=== PATIENT | male | born 1980 | race Caucasian/White ===

== ENCOUNTER 2019-11-03 02:25 | Emergency (ER) | payer SELFPAY ==
--- NOTE | 2019-11-03 03:15 | CR ---
Indication: Shortness of breath Technique: Chest 2 views Comparison: None Findings: Cardiovascular and mediastinum: Heart size and vasculature are normal in caliber and appearance. Lungs and pleural spaces: No pleural effusion or pneumothorax. Minimal patchy and linear opacities left lower lobe. Bones and soft tissues: No significant findings. Impression: Minimal patchy and linear opacities left lower lobe consistent with atelectasis or pneumonia. Dictated by Demario Sandoval MD @ Nov 03 2019 3:13AM Signed by Dr. Demario Sandoval @ Nov 03 2019 3:14AM
[2019-11-03 03:30] LABS: BLOOD UREA NITROGEN,BUN 11 mg/dL (7.0-18.0); CARBON DIOXIDE,CO2 28.3 mmol/L (21.0-32.0); CHLORIDE,CL 105 mmol/L (98-107); GLUCOSE RANDOM 97 mg/dL (74-106); LIPASE 139 U/L (73-393); POTASSIUM,K 4.2 mmol/L (3.5-5.1); SODIUM,NA 142 mmol/L (136-148)
[2019-11-03] MEDS ORDERED: Iopamidol 755 Mg/ML 100 ML Bottle IVPUSH ONE (04:06)
--- NOTE | 2019-11-03 04:35 | CT ---
INDICATION: Shortness of breath TECHNIQUE: CT chest PE was acquired with 90 cc Isovue 370 intravenous contrast. COMPARISON: None. FINDINGS: Heart and vasculature: Contrast opacification of the pulmonary arterial tree is adequate. No sign of pulmonary embolism. Heart size is normal. Thoracic aorta and pulmonary artery are normal in caliber. Lungs and pleural: Trace left pleural effusion. Mild ground-glass opacities within the lingula and left lower lobe. Noncalcified lingular pulmonary nodule measuring 3 millimeters (402, 37). Lymph nodes/mediastinum: No enlarged mediastinal lymph nodes. Thyroid gland is normal. Chest wall: No masses. Upper abdomen: Normal. Bones: Unremarkable for age. IMPRESSION: 1. No evidence of pulmonary embolus. 2. Trace left pleural effusion with mild ground-glass opacities in the lingula and left lower lobe suspicious for an interstitial pneumonia. Please note that all CT scans at this facility use dose modulation, iterative reconstruction, and/or weight-based dosing when appropriate to reduce radiation dose to as low as reasonably achievable. Dictated by Demario Sandoval MD @ Nov 03 2019 4:27AM Signed by Dr. Demario Sandoval @ Nov 03 2019 4:33AM
[2019-11-03] MEDS ORDERED: Doxycycline 100 MG Cap PO ONE (04:38)
--- NOTE | 2019-11-03 04:46 | EDM.PDOC ---
ED [facility] GENERAL MEDICAL PROBLEM - General Chief Complaint: Chest Pain Stated Complaint: CHEST PAIN Time Seen by Provider: 11/03/19 02:42 - History of Present Illness INITIAL COMMENTS - FREE TEXT/NARRATIVE: HPI 39-year-old obese male smoker presents for evaluation of ~3 days of poorly characterized left substernal chest pain that is worsened by taking a deep breath. Patient denies cough, fevers, chills, or exacerbation with exercise. Patient denies recent immobilization, leg trauma, estrogen use, surgery in the last four weeks, hemoptysis, or malignancy in the last 6 months. M/S/F/SocHx notable for: please see HPI; remainder reviewed with patient and in chart. ROS: Negative constitutional, eye, cardiovascular, pulmonary, GI, , MSK, skin , neurologic, psychiatric, endocrine unless noted in the HPI. Exam HR 84, RR 18, BP 131/86, T 36.8C, SaO2 98% on room air. Gen: Pleasant, non-toxic appearing, resting comfortably. HEENT: NC, AT, PEERL, EOMI. Resp: Clear to auscultation bilaterally, normal work of breathing. Card: RRR with no M/R/G, no crackles in lung bases, no pedal edema, no JVD appreciated. GI: NT/ND Vascular: Both ankles, calves, and thighs of equal size, no calf tenderness to palpation bilaterally. MSK: left inferior lateral chest wall TTP. No visible deformities, strength and tone WNL. Skin: Normal color with no visible lesions. Neuro: alert and oriented 3, no facial asymmetry, vision and hearing WNL. Psych: Mood and affect appropriate. Labs / Imaging (pertinent): EKG: SR 85 bpm, no [place] segment depressions, QRS 103 ms, no ST segment elevations or depressions no hyperacute T waves or discordant T wave inversions, QTc 399 ms. WBC 11.14, HB 16.9, d-dimer 0.49, sodium 142, potassium 4.2, AST 17, ALT 37, total bilirubin 0.5, alkaline phosphatase 102, troponin <0.050. CXR: minimal patchy and linear opacities left lower lobe consistent with atelectasis or pneumonia. CTA chest: no evidence of pulmonary embolus. Trace left pleural effusion with mild groundglass opacities in the lingula and left lower lobe suspicious for interstitial pneumonia. MDM Previous chart, nursing note, and vitals reviewed. A: 39-year-old obese male smoker presents for evaluation of ~3 days of poorly characterized left substernal chest pain that is worsened by taking a deep breath. DDx: ACS, unstable angina, pericarditis, myocarditis, dissection, PE, mediastinal air, pneumothorax, MSK, endocarditis, GI (GERD, gastritis, esophageal rupture, esophageal spasm). Evaluation: suspect patient symptoms are secondary to pneumonia/pneumonitis. Chest x-ray with patchy and linear opacities in left lower lobe, however the patient is without a cough, fever, or further corroborating symptoms, as such a CT was obtained. This is without evidence of PE but notable for trace effusion and findings consistent with interstitial pneumonia. Patient was given 100 mg doxycycline the ED and discharged with prescription for the same. With respect to a cardiac etiology the ECG is nonischemic and the troponin is negative, as these were obtained greater than 6 hours from maximal symptom onset , ACS is felt to be effectively excluded. No features strongly suggestive of unstable angina, given alternate diagnosis this is also considered to be effectively excluded. Evaluation is also without evidence pericarditis, myocarditis, dissection, pneumothorax, mediastinal air, and there are no identifiable risk features suggestive of endocarditis. No features suggestive of a G.I. etiology. Disposition: Discharge with PCP follow up. Return to care precautions given verbally and in writing. Impression: pneumonia. chest pain Pain Score (Numeric/FACES): 6 - Related Data Allergies Allergy/AdvReac Type Severity Reaction Status Date / Time No Known Allergies Allergy Verified 11/03/19 02:31 Home Meds: Home Meds Doxycycline [Vibramycin] 100 mg PO BID #19 cap 11/03/19 [Rx] Past Medical History HEENT History: Reports: None Cardiovascular History: Reports: None Respiratory History: Reports: None Gastrointestinal History: Reports: None Genitourinary History: Reports: None Musculoskeletal History: Reports: None Neurological History: Reports: None Psychiatric History: Reports: None Endocrine/Metabolic History: Reports: None Insulin Pump Model and Junior Analyst: None Hematologic History: Reports: None Immunologic History: Reports: None Oncologic (Cancer) History: Reports: None Dermatologic History: Reports: None - Infectious Disease History Infectious Disease History: Reports: None - Past Surgical History Head Surgeries/Procedures: Reports: None Social & Family History - Family History Family Medical History: Noncontributory - Tobacco Use Smoking Status *Q: Current Every Day Smoker Years of Tobacco use: 10 Packs/Tins Daily: 0.5 - Caffeine Use Caffeine Use: Reports: None - Recreational Drug Use Recreational Drug Use: No ED ROS GENERAL - Review of Systems Review Of Systems: See Below ED EXAM, GENERAL - Physical Exam Exam: See Below Course - Vital Signs Last Recorded V/S: Last Vital Signs Temp 36.8 C 11/03/19 02:31 Pulse 84 11/03/19 02:31 Resp 18 11/03/19 02:31 BP 131/86 11/03/19 02:31 Pulse Ox 98 11/03/19 02:31 - Orders/Labs/Meds Orders: Active Orders 24 hr Category Date Time Status EKG 12 Lead [EKG Documentation Completion] [RC] STAT Care 11/03/19 02:37 Active Labs: Laboratory Tests 11/03/19 11/03/19 11/03/19 Range/Units 02:41 02:41 02:41 WBC 11.14 H (4.0-11.0) K/uL RBC 5.15 (4.50-5.90) M/uL Hgb 16.9 (13.0-17.0) g/dL Hct 48.2 (38.0-50.0) % MCV 93.6 (80.0-98.0) fL MCH 32.8 H (27.0-32.0) pg MCHC 35.1 (31.0-37.0) g/dL RDW Std Deviation 45.3 (28.0-62.0) fl RDW Coeff of Wolfgang 13 (11.0-15.0) % Plt Count 181 (150-400) K/uL MPV 10.00 (7.40-12.00) fL Neut % (Auto) 56.3 (48.0-80.0) % Lymph % (Auto) 29.9 (16.0-40.0) % Mccreary % (Auto) 12.4 (0.0-15.0) % Eos % (Auto) 1.1 (0.0-7.0) % Baso % (Auto) 0.3 (0.0-1.5) % Neut # (Auto) 6.3 H (1.4-5.7) K/uL Lymph # (Auto) 3.3 H (0.6-2.4) K/uL Mccreary # (Auto) 1.4 H (0.0-0.8) K/uL Eos # (Auto) 0.1 (0.0-0.7) K/uL Baso # (Auto) 0.0 (0.0-0.1) K/uL Nucleated RBC % 0.0 /100WBC Nucleated RBCs # 0 K/uL D-Dimer, Quantitative 0.49 (0.0-0.50) mg/L FEU Sodium 142 (136-148) mmol/L Potassium 4.2 (3.5-5.1) mmol/L Chloride 105 (98-107) mmol/L Carbon Dioxide 28.3 (21.0-32.0) mmol/L BUN 11 (7.0-18.0) mg/dL Creatinine 1.2 (0.8-1.3) mg/dL Est Cr Clr Drug Dosing 81.83 mL/min Estimated GFR (MDRD) > 60.0 ml/min Glucose 97 (74-106) mg/dL Calcium 8.9 (8.5-10.1) mg/dL Total Bilirubin 0.5 (0.2-1.0) mg/dL AST 17 (15-37) IU/L ALT 37 (14-63) IU/L Alkaline Phosphatase 102 (46-116) U/L Troponin I < 0.050 (0.000-0.056) ng/mL Total Protein 7.6 (6.4-8.2) g/dL Albumin 3.7 (3.4-5.0) g/dL Globulin 3.9 (2.6-4.0) g/dL Albumin/Globulin Ratio 0.9 (0.9-1.6) Lipase 139 (73-393) U/L Meds: Medications Discontinued Medications Generic Name Dose Route Start Last Admin Trade Name Freq PRN Reason Stop Dose Admin Doxycycline Hyclate 100 mg 11/03/19 04:38 Vibramycin PO 11/03/19 04:39 ONETIME ONE Iopamidol 100 ml 11/03/19 04:06 11/03/19 04:07 Isovue-370 (76%) IVPUSH 11/03/19 04:07 100 ml ONETIME ONE Administration Departure - Departure Time of Disposition: 04:45 Disposition: Home, Self-Care 01 Clinical Impression: Pneumonia - Discharge Information Prescriptions: Doxycycline [Vibramycin] 100 mg PO BID #19 cap Referrals: PCP,None [Primary Care Provider] - Additional Instructions: You were in seen in the [facility] Emergency Department for evaluation of chest pain, you were found to have pneumonia, this may be due to either a virus or bacteria. You have been prescribed doxycycline to treat a possible bacterial pneumonia. Your CT demonstrates a small amount of fluid around your lung, you should follow up with a primary care physician for repeat evaluation in 4-5 days. A summary of your CT report is enclosed below. Please read and follow all of the instructions below. CTA chest: no evidence of pulmonary embolus. Trace left pleural effusion with mild groundglass opacities in the lingula and left lower lobe suspicious for interstitial pneumonia. When calling for follow-up care, please make the office aware that this follow- up is from your recent emergency room visit. If for any reason you are refused follow-up, please contact the [facility] Emergency Department at and asked to speak to the emergency department charge nurse. Your care today was limited to identifying and treating emergent medical problems only. Many people have subtle differences in their test results that require follow up with their outpatient physician(s) to correctly determine if this represents a normal variation or concerning abnormality with respect to your specific health. The care given to you today was limited to identifying and treating emergent medical problems - you need to request a copy of all of your medical records from today's visit and follow up with your outpatient physician(s) to review both today's visit and your overall health. If you have any new symptoms or if you are at all concerned about your health please return immediately to the emergency department. Prescriptions: If you are uninsured or have financial difficulties with filling your prescription(s), you may consider using a free pharmacy discount service such as [employer] ([employer]) or [employer] ([employer]). These services allow you to search for a medication on your phone (or computer) and obtain a coupon that usually has a significant discount from the list [place] at a pharmacy. Your physician as well as [facility] does not have a financial relationship with either of these services. You may also wish to speak with your physician to determine if lower cost prescriptions are possible. Obtaining primary care: 1. [facility] provides pediatrics (children), family medicine (children, adults, and some obstetrical care), and internal medicine (adults). Further specialty care is also available. Same day appointments are available. They may be contacted at [phone] and are open Thursday through Thursday 8 AM to [address] [facility] are located at [facility], [address] [place], [place] [address]. 2. [facility] offers family medicine, internal medicine, women health, and further specialty care. [facility] may be contacted at [phone]. [facility] is located at [address] [address]. 3. If you have health insurance, please also contact your insurer for a list of accepting providers under your policy, you may contact these providers for further health care. Occupational health: Work related injuries may consider following up with [facility], . Occupational health services are located at [address] [place] [address] and are open Thursday through Thursday from 7: 30 am to 5:00 pm. Obstetrical and Gynecological Care: [facility], , Thursday through Thursday 8 AM to [address] [place] [address]. Eyecare: If you have an eye injury you should follow up with your drum printer or with [facility], at [phone] or [phone] , they are located at [address] [place] [address]. Dental Care * Graham Begum DDS. [address] [place], [place]. Ph. [phone] * Sean Begum DDS MS. [address] Ph[address] [phone] * Santos Hong DDS. [address] 09/[address] [place] [address]. Ph. [phone] * Emir Olivera DDS. [address] [facility] [address] [place], [place]. Ph. [phone] * Ghassan Felix DDS PC. [address] [facility] [address] [place], [place]. Ph. [phone] * Pal Hebert DDS. [address] [facility]. Ph. [phone] * [facility]. [address] [place], [place]. Ph. [phone] * [facility]. [address] [place] [address], [place], [place]. Ph. [phone] * [facility] [address] [place] [address]. Ph. * [facility]. [address] [place] [address] [address] [place], [place]. Ph. [phone] * [facility]. [address] [place], [place]. Ph. [phone] Pneumonia * Pneumonia is an infection of the lungs that causes coughing, fever, and trouble breathing. It is a serious illness, especially in young children, people older than 65, and people with other health problems. Pneumonia is usually caused by bacteria but can also be caused by viruses or other germs. You have been prescribed an antibiotic and possibly a steroid (prednisone). * Take the antibiotic for the entire prescription. * Return if you have difficulty breathing, chest pain, shaking chills, lighheadedness, shortness of breath, a temperature greater than 102F, lightheaded, or are otherwise concerned about your health. * You may take Ibuprofen (Motrin) and Acetaminophen (Tylenol) as directed on the bottle for relief of pain. * Stay well hydrated and get plenty of rest. * Please see you primary care physician if you do not start to feel better in 3- 5 days. * You should also receive a yearly influenza vaccine and a pneumococcal pneumonia vaccine every 5 years Doxycycline (Brand Name: Vibramycin) * Please take this medication as prescribed. * Please take the medication for the full duration of the precription. * If you feel you are experiencing a side effect, please call your physician or the emergency department. * This medication may rarely cause mild to severe rashes that hurt with exposure to sunlight. Please stop this medication and contact your doctor if you have a rash. WARNING/CAUTION: Even though it may be rare, some people may have very bad and sometimes deadly side effects when taking a drug. Tell your doctor or get medical help right away if you have any of the following signs or symptoms that may be related to a very bad side effect: * Signs of an allergic reaction, like rash; hives; itching; red, swollen, blistered, or peeling skin with or without fever; wheezing; tightness in the chest or throat; trouble breathing or talking; unusual hoarseness; or swelling of the mouth, face, lips, tongue, or throat. * Signs of liver problems like dark urine, feeling tired, not hungry, upset stomach or stomach pain, light-colored stools, throwing up, or yellow skin or eyes. * Chest pain. * Not able to pass urine or change in how much urine is passed. * Fever or chills. * Sore throat. * Throat irritation. * Trouble swallowing. * Any bruising or bleeding that is not normal. * Joint pain. * Feeling very tired or weak. * Vaginal itching or discharge. * It is common to have diarrhea when taking this drug. Rarely, a very bad form of diarrhea called Clostridium difficile (C diff)-associated diarrhea (CDAD) may occur. Sometimes, this has led to a deadly bowel problem (colitis). CDAD may happen while you are taking this drug or within a few months after you stop taking it. Call your doctor right away if you have stomach pain or cramps, very loose or watery stools, or bloody stools. Do not try to treat loose stools without first checking with your doctor. * Raised pressure in the brain has happened with this drug. Most of the time, this will go back to normal after this drug is stopped. Sometimes, loss of eyesight may happen and may not go away even after this drug is stopped. Call your doctor right away if you have a headache or eyesight problems like blurred eyesight, seeing double, or loss of eyesight. * A very bad skin reaction (Marshall-Reza syndrome/toxic epidermal necrolysis ) may happen. It can cause very bad health problems that may not go away, and sometimes . Get medical help right away if you have signs like red, swollen , blistered, or peeling skin (with or without fever); red or irritated eyes; or sores in your mouth, throat, nose, or eyes. * What are some other side effects of this drug? * All drugs may cause side effects. However, many people have no side effects or only have minor side effects. Call your doctor or get medical help if any of these side effects or any other side effects bother you or do not go away: * Not hungry. * Upset stomach or throwing up. * Loose stools (diarrhea). * These are not all of the side effects that may occur. If you have questions about side effects, call your doctor. Call your doctor for medical advice about side effects. What do I need to tell my doctor BEFORE I take this drug? * If you have an allergy to doxycycline or any other part of this drug. * If you are allergic to any drugs like this one, any other drugs, foods, or other substances. Tell your doctor about the allergy and what signs you had, like rash; hives; itching; shortness of breath; wheezing; cough; swelling of face, lips, tongue, or throat; or any other signs. * If you are taking any of these drugs: Acitretin, isotretinoin, or a penicillin. * This is not a list of all drugs or health problems that interact with this drug. * Tell your doctor and pharmacist about all of your drugs (prescription or OTC, natural products, vitamins) and health problems. You must check to make sure that it is safe for you to take this drug with all of your drugs and health problems. Do not start, stop, or change the dose of any drug without checking with your doctor. What are some things I need to know or do while I take this drug? * You may get sunburned more easily. Avoid sun, sunlamps, and tanning beds. Use sunscreen and wear clothing and eyewear that protects you from the sun. * control pills and other hormone-based control may not work as well to prevent . Use some other kind of control also like a condom when taking this drug. * This drug may cause a change in tooth color to [id number] in children younger than 8 years old. If this change of tooth color happens, it will not go away. Talk with the doctor. * Do not give to a child younger than 8 years old unless other drugs cannot be used or have not worked. Talk with the doctor. * This drug may cause harm to the unborn baby if you take it while you are . * Tell your doctor if you are or plan on getting . You will need to talk about the benefits and risks of using this drug while you are . * Tell your doctor if you are breast-feeding. You will need to talk about any risks to your baby. Sepsis Event Note - Evaluation Sepsis Screening Result: No Definite Risk - Focused Exam Vital Signs: Vital Signs Temp Pulse Resp BP Pulse Ox 11/03/19 02:31 36.8 C 84 18 131/86 98 Date Exam was Performed: 11/03/19 Time Exam was Performed: 04:44 - My Orders Last 24 Hours: My Active Orders 11/03/19 02:37 EKG 12 Lead [EKG Documentation Completion] [RC] STAT - Assessment/Plan Last 24 Hours: My Active Orders 11/03/19 02:37 EKG 12 Lead [EKG Documentation Completion] [RC] STAT
== END 2019-11-03 05:00 | disposition home or self-care (01) ==
LOC: MW.ED 02:25
DX: J18.9 Pneumonia, unspecified organism (principal); F17.210 Nicotine dependence, cigarettes, uncomplicated
CPT/HCPCS: 36415; 71046; 71275; 80053; 83690; 84484; 85025; 85379; 93005; 99285; A9270; Q9967; 99283